=== PATIENT | male | born 1995 | race Hispanic/Latino ===

== ENCOUNTER 2019-07-10 10:49 | Emergency (ER) | payer BC, SELFPAY ==
[2019-07-10 13:17] LABS: #Eosinphils 0.1 thou/uL (0.0-0.7); #Lymphocytes 1.3 thou/uL (1.20-3.40); #Monocytes 0.4 thou/uL (0.11-0.59); #Neutrophils 2.3 thou/uL (1.40-6.50); %Basophils 0.7 % (0.0-1.0); %Eosinophils 2.4 % (0.0-10.0); %Lymphocytes 31.5 % (21.0-51.0); %Monocytes 8.7 % (0.0-10.0); %Neutrophils 56.7 % (42.0-75.0); Hemoglobin 12.3 g/dL (14.0-18.0); Mean Corpuscular HGB CONC 30.8 g/dL (32.0-36.0); Mean Corpuscular Hemoglobin 24.5 pg (27.0-31.0); Mean Corpuscular Volume 79.6 fL (78.0-98.0); Mean Platelet Volume 8.5 fL (7.4-10.4); Platelet Count 266 thou/uL (130-400); RBC Distribution Width 13.2 % (11.5-14.5); Red Blood Cell (RBC) Count 5.01 mill/uL (4.70-6.10); White Blood Cell (WBC) Count 4.1 thou/uL (4.8-10.8)
[2019-07-10 13:42] LABS: ALT (SGPT) 27 U/L (8-55); AST (SGOT) 33 U/L (5-34); Alkaline Phosphatase 125 U/L (40-110); Anion Gap 11 mmol/L (10-20); BUN (Urea Nitrogen) 8 mg/dL (8.9-20.6); Bilirubin, Total 0.4 mg/dL (0.2-1.2); Calc. Creatinine Clearance 0 mL/min (70-130); Carbon Dioxide 27 mmol/L (22-29); Chloride 103 mmol/L (98-107); Estimated GFR-MDRD Greater than 90; Globulin 5.5 g/dL (2.4-3.5); Glucose 94 mg/dL (70-105); Potassium 3.5 mmol/L (3.5-5.1); Protein, Total 9.5 g/dL (6.0-8.3); Sodium 137 mmol/L (136-145)
[2019-07-10 13:42] LABS: Bilirubin Negative (Negative); Blood, Urine Negative (Negative); Clarity Clear (Clear); Glucose, Urine (Dipstick) Normal (Negative); Leukocyte Negative Leu/uL (Negative); Nitrite Negative (Negative); Protein, Urine (Dipstick) 20 mg/dL (Neg-Trace); Urobilinogen Normal mg/dL (Less than 2)
[2019-07-10 14:30] LABS: Syphilis Antibody Index 19.05 S/CO (<1.00 Non-Reactive)
--- NOTE | 2019-07-10 15:14 | RAD ---
EXAM: CHEST ONE VIEW HISTORY: Dyspnea. Secondary syphilis. COMPARISON: None FINDINGS: The cardiac silhouette and pulmonary vasculature is within normal limits. The lungs are clear. The os seous structures are intact. IMPRESSION: No acute cardiopulmonary process.
[2019-07-10 15:28] LABS: HIV (1/2) Antibody/Antigen Reflxed Confirmation (NonReactive)
--- NOTE | 2019-07-10 15:53 | CT ---
HEAD CT WITHOUT CONTRAST: DATE: 07/10/2019. COMPARISON: None. HISTORY: Weight loss and vision changes. TECHNIQUE: Axial CT imaging at 5 mm intervals from vertex through the skull base without contrast. FINDINGS: The visualized paranasal sinuses and mastoid air cells demonstrate minimal mucosal thickening involvi ng the inferior mastoid air cells on the left. There is no displaced calvarial fracture, intracrania l hemorrhage, midline shift, or mass effect. IMPRESSION: No acute findings. POS: [facility]
[2019-07-10 23:44] LABS: Syphilis Antibody REACTIVE (Nonreactive)
[2019-07-11 15:13] LABS: HIV 1 Antibody Multi-Spot Positive (Negative); HIV 2 Antibody Multi-Spot Negative (Negative); HIV Multi-spot Interp HIV-1 Positive (.)
== END 2019-07-10 16:55 | disposition home or self-care (01) ==
LOC: ERS 10:49
DX: B20 Human immunodeficiency virus [HIV] disease (principal)
CPT/HCPCS: 36415; 70450; 71045; 80053; 81003; 85025; 86593; 86698; 86701; 86702; 86780; 87389; 87899